=== PATIENT | female | born 1970 | race Caucasian/White ===

== ENCOUNTER 2018-03-31 19:25 | Emergency (ER) | payer OTHER ==
--- NOTE | 2018-03-31 19:38 | PDOC ---
History of Present Illness - General History Source: Patient Exam Limitations: No Limitations - History of Present Illness Initial Comments: 03/31/18 21:19 The patient is a 47 year old female with no significant PMH who presents to the emergency department with left ankle pain since earlier today . the patient reports that she was at home running errands around the house when she hit her left foot on the edge of the bed frame. The patient reports that the pain is intermittent and radiates up her left leg. She denies any prior injury or trauma. She denies any surgery. She denies any numbness, weakness, or tingling sensation. The patient denies any other symptoms. She denies fever, chills, nausea, vomit, diarrhea , constipation or urinary symptoms. She denies chest pain, shortness of breath, headache and dizziness. The patient denies any other complaints. <Cassie Oropeza - Last Filed: 03/31/18 21:19> - General History Source: Patient Exam Limitations: No Limitations <Mary Higgins - Last Filed: 04/01/18 01:01> - General Chief Complaint: Injury Stated Complaint: LEFT TOE INJURY Time Seen by Provider: 03/31/18 19:37 Past History <Cassie Oropeza - Last Filed: 03/31/18 21:19> - Past Medical History COPD: No GI Disorders: Yes Psychiatric Problems: Yes - Suicide/Smoking/Psychosocial Hx Smoking History: Never smoked Have you smoked in the past 12 months: No Information on smoking cessation initiated: No Hx Alcohol Use: No Drug/Substance Use Hx: No Substance Use Type: None <Mary Higgins - Last Filed: 04/01/18 01:01> - Past Medical History Allergies/Adverse Reactions: Allergies Allergy/AdvReac Type Severity Reaction Status Date / Time No Known Allergies Allergy Verified 03/31/18 19:26 Home Medications: Ambulatory Orders Escitalopram Oxalate [Lexapro -] 5 mg PO DAILY 03/31/18 Pantoprazole Sodium [Protonix] 40 mg PO DAILY 03/31/18 Review of Systems - Review of Systems Able to Perform ROS?: Yes Comments:: 03/31/18 21:19 GENERAL/CONSTITUTIONAL: No fever or chills. No weakness. HEAD, EYES, EARS, NOSE AND THROAT: No change in vision. No ear pain or discharge. No sore throat. CARDIOVASCULAR: No chest pain or shortness of breath. RESPIRATORY: No cough, wheezing, or hemoptysis. GASTROINTESTINAL: No nausea, vomiting, diarrhea or constipation. GENITOURINARY: No dysuria, frequency, or change in urination. MUSCULOSKELETAL: (+)left ankle pain. No joint or muscle swelling or pain. No neck or back pain. SKIN: No rash NEUROLOGIC: No headache, vertigo, loss of consciousness, or change in strength/ sensation. ENDOCRINE: No increased thirst. No abnormal weight change. HEMATOLOGIC/LYMPHATIC: No anemia, easy bleeding, or history of blood clots. ALLERGIC/IMMUNOLOGIC: No hives or skin allergy. <Cassie Oropeza - Last Filed: 03/31/18 21:19> *Physical Exam - Vital Signs Last Vital Signs Temp Pulse Resp BP Pulse Ox 98.2 F 62 20 107/71 100 03/31/18 19:26 03/31/18 19:26 03/31/18 19:26 03/31/18 19:26 03/31/18 19:26 - Physical Exam Comments: 03/31/18 21:19 GENERAL: The patient is in no acute distress. HEAD: Normal with no signs of trauma. EYES: PERRLA, EOMI, sclera anicteric, conjunctiva clear. ENT: Ears normal, nares patent, oropharynx clear without exudates. Moist mucous membranes. NECK: Normal range of motion, supple without lymphadenopathy, JVD, or masses. LUNGS: Breath sounds equal, clear to auscultation bilaterally. No wheezes, and no crackles. HEART:Regular rate and rhythm, normal S1 and S2 without murmur, rub or gallop. ABDOMEN: Soft, nontender, normoactive bowel sounds. No guarding, no rebound. No masses palpable. EXTREMITIES: (+)left foot: 2+dp, 2+pt, sensation intact . motor intact. Normal range of motion, no edema. No clubbing or cyanosis. No erythema, or tenderness. NEUROLOGICAL: Cranial nerves II through XII grossly intact. Normal speech. No focal neurological deficits. MUSCULOSKELETAL: Back non-tender to palpation, no CVA tenderness SKIN: Warm, Dry, normal turgor, no rashes or lesions noted. <Cassie Oropeza - Last Filed: 03/31/18 21:19> - Vital Signs Last Vital Signs Temp Pulse Resp BP Pulse Ox 98.2 F 62 20 107/71 100 03/31/18 19:26 03/31/18 19:26 03/31/18 19:26 03/31/18 19:26 03/31/18 19:26 <Mary Higgins - Last Filed: 04/01/18 01:01> ED Treatment Course - Medications Given in the ED: ED Medications Discontinued Medications Generic Name Dose Route Start Last Admin Trade Name Jesika PRN Reason Stop Dose Admin Ibuprofen 600 mg 03/31/18 19:46 03/31/18 19:55 Motrin - PO 03/31/18 19:47 600 mg ONCE ONE Administration <Cassie Oropeza - Last Filed: 03/31/18 21:19> Medical Decision Making - Medical Decision Making 03/31/18 20:45 Ms Mims is a 47-year-old female presented to emergency department with a complaint of left foot pain status post having her foot today at approximately 2 PM. Patient is an ambulatory since this event. Patient reports the predominant pain is in the left fourth toe however pain does radiate up the foot. Patient has not taken Motrin for pain. Patient has not iced or elevated her foot. : Foot is not swollen. There is some bruising on the left fourth toe. Mild swelling. There is 2+ dorsalis pedis pulse, 2+ posterior tibialis. Sensation intact. Motor is intact at the toes, ankle, knee. There is no proximal fibular tenderness to palpation Will do: X-ray. Will give Motrin. X-rays read as negative. Will discharged home. Will place in hard sole shoe. Patient asked to follow-up with podiatry. Return to the ER for any other concerns or complaints Clinical impression: toe injury, initial presentation <Mary Higgins - Last Filed: 04/01/18 01:01> *DC/Admit/Observation/Transfer - Attestations Scribe Attestion: 03/31/18 21:20 Documentation prepared by Cassie Oropeza, acting as anesthesiology medical doctor for Mary Higgins MD. <Cassie Oropeza - Last Filed: 03/31/18 21:19> - Discharge Dispostion Decision to Admit order: No <Mary Higgins - Last Filed: 04/01/18 01:01> Diagnosis at time of Disposition: Injury of toe Qualifiers: Encounter type: initial encounter Laterality: left Qualified Code(s): S99.922A - Unspecified injury of left foot, initial encounter - Discharge Dispostion Disposition: HOME Condition at time of disposition: Stable - Patient Instructions Printed Discharge Instructions: DI for Toe Sprain Additional Instructions: Thank you for coming in to the ER Please Be sure to follow-up with your family care physician, or 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 Please take Motrin for pain or Tylenol. You can ice affected area as tolerable. Also elevate. He continues a heart soled shoe as is comfortable for you. Return to the ER for any other concerns or complaints
[2018-03-31] MEDS ORDERED: IBUPROFEN 600 MG TABLET (FP) PO ONE ×2 (19:46→19:54)
[2018-03-31 20:06] VITALS: BP 107/71; PULSE 62; TEMP 98.2; BMI 21.7
== END 2018-03-31 20:59 | disposition home or self-care (01) ==
LOC: FER 19:25
DX: S99.922A Unspecified injury of left foot, initial encounter (principal); W22.03XA Walked into furniture, initial encounter; Y93.89 Activity, other specified; Y92.008 Other place in unspecified non-institutional (private) residence as the place of occurrence of the external cause
CPT/HCPCS: 73630-TC-LT; 99281-25